=== PATIENT | male | born 1980 | race Caucasian/White ===

== ENCOUNTER 2017-12-22 20:13 | Inpatient (IN) | payer OTHER ==
[2017-12-22] MEDS ORDERED: SODIUM CHLORIDE 0.9% 1,000 ML IV STA ×2 (20:37)
[2017-12-22 20:50] LABS: Basophils % (A) 0 %; Eosinophils # (A) 0.2 k/uL (0-0.7); Eosinophils % (A) 3 %; HGB 14.4 gm/dL (13.0-17.5); Lymphocytes # (A) 1.9 k/uL (1.0-4.8); Lymphocytes % (A) 38 %; MCH 29.8 pg (25.0-35.0); MCHC 35.2 g/dL (31.0-37.0); MCV 84.5 fL (80.0-100.0); Mean Platelet Volume 6.6; Monocytes # (A) 0.5 k/uL (0-1.0); Monocytes % (A) 9 %; Neutrophils # (A) 2.4 k/uL (1.3-7.7); Neutrophils % (A) 46 %; Platelet Count 203 k/uL (150-450); RBC 4.85 m/uL (4.30-5.90); RDW 12.6 % (11.5-15.5); WBC 5.1 k/uL (3.8-10.6)
[2017-12-22 21:01] LABS: ALT 53 U/L (21-72); AST 36 U/L (17-59); Albumin 3.9 g/dL (3.5-5.0); Alkaline Phosphatase 49 U/L (38-126); Anion Gap 10 mmol/L; Blood Urea Nitrogen 14 mg/dL (9-20); Calcium 9.1 mg/dL (8.4-10.2); Carbon Dioxide 27 mmol/L (22-30); Chloride 105 mmol/L (98-107); Glucose 106 mg/dL (74-99); Potassium 3.9 mmol/L (3.5-5.1); Sodium 142 mmol/L (137-145); Total Bilirubin 0.4 mg/dL (0.2-1.3)
[2017-12-22] MEDS ORDERED: HEPARIN SODIUM,PORCINE 5,000 UNIT/ML 1 ML VIAL IV STA (21:18)
--- NOTE | 2017-12-22 21:32 | XR ---
EXAMINATION TYPE: XR chest 1V DATE OF EXAM: 12/22/2017 COMPARISON: NONE HISTORY: Myocardial infarction TECHNIQUE: Single frontal view of the chest is obtained. FINDINGS: There is no focal air space opacity, pleural effusion, or pneumothorax seen. The cardiac silhouette size is within normal limits. The osseous structures are intact. There are overlying car diac leads. IMPRESSION: No acute process.
[2017-12-22] MEDS ORDERED: IV FLUID CONTINUATION 1,000 ML IV ONE (21:45)
[2017-12-22] MEDS ORDERED: MORPHINE SULFATE 10 MG/ML SYRINGE IV PRN (21:46)
[2017-12-22] MEDS ORDERED: NALOXONE 0.4 MG/ML 1 ML VIAL IV PRN (21:46)
[2017-12-22] MEDS ORDERED: ACETAMINOPHEN TAB 325 MG TAB PO PRN (21:46)
--- NOTE | 2017-12-22 21:46 | ED ---
Dizziness HPI - General Chief Complaint: Dizziness Stated Complaint: Abn EKG Time Seen by Provider: 12/22/17 20:20 Source: EMS Mode of arrival: EMS Limitations: no limitations - History of Present Illness Initial Comments: 7 years old male was sent to [facility] emergency department from urgent care they noticed that there was a EKG changes he presented there for dizziness dizziness is gone on for about 3 days now he stopped taken his antidepressants which was mostly Celexa and he was also on a Klonopin IV stopped taken #2 weeks ago he still feels dizzy he denies any chest pain no shortness of breath he denies any street drugs he denies any abdominal pain no frequency urgency dysuria he denies any family history dad and a young age mom's history of for high blood pressure and siblings are healthy. - Related Data Home Medications Medication Instructions Recorded Confirmed No Known Home Medications [No 12/22/17 12/22/17 Known Home Medications] Allergies Allergy/AdvReac Type Severity Reaction Status Date / Time No Known Allergies Allergy Verified 12/22/17 20:27 Review of Systems ROS Statement: Those systems with pertinent positive or pertinent negative responses have been documented in the HPI. ROS Other: All systems not noted in ROS Statement are negative. Past Medical History Past Medical History: No Reported History History of Any Multi-Drug Resistant Organisms: None Reported Past Surgical History: No Surgical Hx Reported Past Psychological History: Anxiety, Depression Smoking Status: Former smoker Past Alcohol Use History: Occasional Past Drug Use History: Marijuana General Exam - General Exam Comments Initial Comments: General: The patient is awake and alert, in no distress, and does not appear acutely ill. Skin: Skin is warm and dry and no rashes or lesions are noted. Eye: Pupils are equal, round and reactive to light, extra-ocular movements are intact; there is normal conjunctiva bilaterally. Ears, nose, mouth and throat: There are moist mucous membranes and no oral lesions. Neck: The neck is supple, there is no tenderness or JVD. Cardiovascular: There is a regular rate and rhythm. No murmur, rub or gallop is appreciated. Respiratory: To auscultation bilateral, no wheezing no rhonchi no distress respiratory crowe noticed Gastrointestinal: Soft, non-distended, non-tender abdomen without masses or organomegaly noted. There is no rebound or guarding present. Bowel sounds are unremarkable. Back: There is no tenderness to palpation in the midline. There is no obvious deformity. Musculoskeletal: Normal ROM, no tenderness, There is no pedal edema. There is no calf tenderness or swelling. No cords were appreciated. Neurological: CN II-XII intact, Cranial nerves III through XII are intact. There are no obvious motor or sensory deficits. Coordination appears grossly intact. Speech is normal. Psychiatric: Cooperative, appropriate mood & affect, normal judgment. Limitations: no limitations Course Vital Signs 12/22/17 12/22/17 12/22/17 20:15 20:49 21:11 Temperature 97.1 F L Pulse Rate 70 64 Pulse Rate [ 67 Right Sitting Pulse Oximetery ] Pulse Rate [ 70 Right Standing Pulse Oximetery ] Pulse Rate [ 58 L Right Supine Pulse Oximetery ] Respiratory 16 18 18 Rate Blood Pressure 125/68 115/72 Blood Pressure 106/68 [Right Arm Sitting] Blood Pressure 110/72 [Right Arm Standing] Blood Pressure 100/57 [Right Arm Supine] O2 Sat by Pulse 96 100 Oximetry 12/22/17 12/22/17 21:17 21:30 Temperature Pulse Rate 59 L 55 L Pulse Rate [ Right Sitting Pulse Oximetery ] Pulse Rate [ Right Standing Pulse Oximetery ] Pulse Rate [ Right Supine Pulse Oximetery ] Respiratory 18 18 Rate Blood Pressure 120/72 121/73 Blood Pressure [Right Arm Sitting] Blood Pressure [Right Arm Standing] Blood Pressure [Right Arm Supine] O2 Sat by Pulse 100 100 Oximetry EKG was reviewed, was faxed to Dr. Bear Sifuentes is concerned about STEMI he agreed to activate the [employer] were given patient 4000 units of heparin EKG Findings - EKG Comments: EKG Findings:: I'm EKG is normal sinus rhythm Rosa is normal his ST elevation and now to 3 and slight one in aVF, no reciprocal changes noticed no ST depression noticed in the chest leads Medical Decision Making - Lab Data Result diagrams: 12/22/17 20:20 12/22/17 20:20 Lab Results 12/22/17 12/22/17 12/22/17 Range/Units 20:20 20:20 20:20 WBC 5.1 (3.8-10.6) k/uL RBC 4.85 (4.30-5.90) m/uL Hgb 14.4 (13.0-17.5) gm/dL Hct 41.0 (39.0-53.0) % MCV 84.5 (80.0-100.0) fL MCH 29.8 (25.0-35.0) pg MCHC 35.2 (31.0-37.0) g/dL RDW 12.6 (11.5-15.5) % Plt Count 203 (150-450) k/uL Neutrophils % 46 % Lymphocytes % 38 % Monocytes % 9 % Eosinophils % 3 % Basophils % 0 % Neutrophils # 2.4 (1.3-7.7) k/uL Lymphocytes # 1.9 (1.0-4.8) k/uL Monocytes # 0.5 (0-1.0) k/uL Eosinophils # 0.2 (0-0.7) k/uL Basophils # 0.0 (0-0.2) k/uL Sodium 142 (137-145) mmol/L Potassium 3.9 (3.5-5.1) mmol/L Chloride 105 (98-107) mmol/L Carbon Dioxide 27 (22-30) mmol/L Anion Gap 10 mmol/L BUN 14 (9-20) mg/dL Creatinine 0.80 (0.66-1.25) mg/dL Est GFR (CKD-EPI)AfAm >90 (>60 ml/min/1.73 sqM) Est GFR (CKD-EPI)NonAf >90 (>60 ml/min/1.73 sqM) Glucose 106 H (74-99) mg/dL Plasma Lactic Acid Geoff (0.7-2.0) mmol/L Calcium 9.1 (8.4-10.2) mg/dL Total Bilirubin 0.4 (0.2-1.3) mg/dL AST 36 (17-59) U/L ALT 53 (21-72) U/L Alkaline Phosphatase 49 (38-126) U/L Troponin I <0.012 (0.000-0.034) ng/mL Total Protein 7.0 (6.3-8.2) g/dL Albumin 3.9 (3.5-5.0) g/dL 12/22/17 Range/Units 20:45 WBC (3.8-10.6) k/uL RBC (4.30-5.90) m/uL Hgb (13.0-17.5) gm/dL Hct (39.0-53.0) % MCV (80.0-100.0) fL MCH (25.0-35.0) pg MCHC (31.0-37.0) g/dL RDW (11.5-15.5) % Plt Count (150-450) k/uL Neutrophils % % Lymphocytes % % Monocytes % % Eosinophils % % Basophils % % Neutrophils # (1.3-7.7) k/uL Lymphocytes # (1.0-4.8) k/uL Monocytes # (0-1.0) k/uL Eosinophils # (0-0.7) k/uL Basophils # (0-0.2) k/uL Sodium (137-145) mmol/L Potassium (3.5-5.1) mmol/L Chloride (98-107) mmol/L Carbon Dioxide (22-30) mmol/L Anion Gap mmol/L BUN (9-20) mg/dL Creatinine (0.66-1.25) mg/dL Est GFR (CKD-EPI)AfAm (>60 ml/min/1.73 sqM) Est GFR (CKD-EPI)NonAf (>60 ml/min/1.73 sqM) Glucose (74-99) mg/dL Plasma Lactic Acid Geoff 0.9 (0.7-2.0) mmol/L Calcium (8.4-10.2) mg/dL Total Bilirubin (0.2-1.3) mg/dL AST (17-59) U/L ALT (21-72) U/L Alkaline Phosphatase (38-126) U/L Troponin I (0.000-0.034) ng/mL Total Protein (6.3-8.2) g/dL Albumin (3.5-5.0) g/dL Disposition Clinical Impression: STEMI (ST elevation myocardial infarction) Disposition: ADMITTED IP TO THIS HOSP Condition: Good Referrals: Nonstaff,Physician [Primary Care Provider] - 1-2 days
[2017-12-22] MEDS ORDERED: VERAPAMIL 2.5 MG/ML 2 ML AMP ONE (21:50)
[2017-12-22] MEDS ORDERED: MIDAZOLAM 2 MG/2 ML VIAL ONE (21:51)
[2017-12-22] MEDS ORDERED: MORPHINE SULFATE 4 MG/ML SYRINGE IV PRN (21:54)
[2017-12-22] MEDS ORDERED: MIDAZOLAM 2 MG/2 ML VIAL IV ONE (21:56)
[2017-12-22] MEDS ORDERED: LIDOCAINE 2% INJ 20 MG/ML SQ ONE ×2 (21:58→22:00)
[2017-12-22] MEDS ORDERED: HEPARIN SODIUM 1,000 UN/ML (10ML VL) ONE (22:01)
[2017-12-22] MEDS: VERAPAMIL SYRINGE (5 MG/10 ML) INTRAARTER ONE ×2 (22:03→22:11)
[2017-12-22] MEDS ORDERED: IOHEXOL 350 MG/ML 125ML BOTTLE INJ ONE (22:11)
[2017-12-22] MEDS ORDERED: RX INFO: IV CONTRAST WAS GIVEN 1 EACH MISC MISCELLANE PRN (22:21)
[2017-12-22] MEDS ORDERED: SODIUM CHLORIDE 0.9% 1,000 ML IV SCH (22:30)
--- NOTE | 2017-12-22 22:30 | P.CRDCN ---
History of Present Illness Consult date: 12/22/17 Chief complaint: Dizziness or lightheadedness History of present illness: This is a 37-year-old gentleman who was visiting from [place] presented to the emergency room complaining of dizziness and lightheadedness. The symptoms started about 3 days ago. He did not have any symptoms of chest pain or discomfort. No feeling of heart racing or fluttering and no syncope. The EKG when he presented to the hospital showed about [address] segment elevation in the inferior leads without any ST changes in the chest leads. The EKG was quite concerning for acute inferior STEMI. Because of that the patient advised to undergo an emergent heart catheterization. It did show normal coronaries. Also I did perform left ventriculography and that revealed normal LV function. The patient does not have any comorbidities like diabetes or hypertension or dyslipidemia. He does smoke marijuana. He does have a family history of hypertension with his mother. He did tolerate the procedure very well. Past Medical History Past Medical History: No Reported History History of Any Multi-Drug Resistant Organisms: None Reported Past Surgical History: No Surgical Hx Reported Past Psychological History: Anxiety, Depression Smoking Status: Former smoker Past Alcohol Use History: Occasional Past Drug Use History: Marijuana Medications and Allergies Home Medications Medication Instructions Recorded Confirmed Type No Known Home Medications [No 12/22/17 12/22/17 History Known Home Medications] Allergies Allergy/AdvReac Type Severity Reaction Status Date / Time No Known Allergies Allergy Verified 12/22/17 20:27 Physical Exam Vitals: Vital Signs Temp Pulse Pulse Pulse Pulse Resp BP 12/22/17 21:30 55 L 18 121/73 12/22/17 21:17 59 L 18 120/72 12/22/17 21:11 64 18 115/72 12/22/17 20:49 67 70 58 L 18 12/22/17 20:15 97.1 F L 70 16 125/68 BP BP BP Pulse Ox 12/22/17 21:30 100 12/22/17 21:17 100 12/22/17 21:11 100 12/22/17 20:49 106/68 110/72 100/57 12/22/17 20:15 96 Intake and Output 12/22/17 12/22/17 12/22/17 06:59 14:59 22:59 Intake Total 50 Balance 50 Intake: IV 50 Other: Weight 65.771 kg Patient Weight 12/23/17 06:59 Weight 65.771 kg - Constitutional General appearance: no acute distress - Respiratory Respiratory: bilateral: CTA - Cardiovascular Rhythm: regular Heart sounds: normal: S1, S2 Abnormal Heart Sounds: systolic murmur Results 12/22/17 20:20 12/22/17 20:20 Cardiac Enzymes 12/22/17 12/22/17 Range/Units 20:20 20:20 AST 36 (17-59) U/L Troponin I <0.012 (0.000-0.034) ng/mL CBC 12/22/17 Range/Units 20:20 WBC 5.1 (3.8-10.6) k/uL RBC 4.85 (4.30-5.90) m/uL Hgb 14.4 (13.0-17.5) gm/dL Hct 41.0 (39.0-53.0) % Plt Count 203 (150-450) k/uL Comprehensive Metabolic Panel 12/22/17 Range/Units 20:20 Sodium 142 (137-145) mmol/L Potassium 3.9 (3.5-5.1) mmol/L Chloride 105 (98-107) mmol/L Carbon Dioxide 27 (22-30) mmol/L BUN 14 (9-20) mg/dL Creatinine 0.80 (0.66-1.25) mg/dL Glucose 106 H (74-99) mg/dL Calcium 9.1 (8.4-10.2) mg/dL AST 36 (17-59) U/L ALT 53 (21-72) U/L Alkaline Phosphatase 49 (38-126) U/L Total Protein 7.0 (6.3-8.2) g/dL Albumin 3.9 (3.5-5.0) g/dL Current Medications Generic Name Dose Route Start Last Admin Trade Name Freq PRN Reason Stop Dose Admin Acetaminophen 650 mg 12/22/17 21:46 Tylenol Tab PO Q4HR PRN Fever and/or Mild Pain Sodium Chloride 1,000 mls @ 75 mls/hr 12/22/17 20:37 12/22/17 20:47 Saline 0.9% IV 12/23/17 09:56 75 mls/hr .[id number] STA Administration Sodium Chloride 1,000 mls @ 100 mls/hr 12/22/17 22:30 Saline 0.9% IV 12/23/17 03:31 .Q10H [facility] Miscellaneous Information 1 each 12/22/17 22:21 Rx Info: Iv Contrast Was Given MISCELLANE 12/24/17 22:21 DAILY PRN Per Protocol Morphine Sulfate 5 mg 12/22/17 21:54 Morphine Sulfate (Inj) IV Q2HR PRN Pain Scale 10 Naloxone HCl 0.2 mg 12/22/17 21:46 Narcan IV Q2M PRN Opioid Reversal Intake and Output 12/22/17 12/22/17 12/22/17 06:59 14:59 22:59 Intake Total 50 Balance 50 Intake: IV 50 Other: Weight 65.771 kg Patient Weight 12/23/17 06:59 Weight 65.771 kg 12/22/17 20:20 12/22/17 20:20 Assessment and Plan Assessment: Assessment #1 abnormal EKG concerning for inferior STEMI #2 dizziness and lightheadedness. Plan #1 the patient underwent an emergent heart catheterization and that revealed normal coronaries #2 I will perform an echocardiogram was Doppler #3 follow-up with the patient. Thank you for allowing us participate in his care
--- NOTE | 2017-12-22 22:34 | P.PCN ---
Date of Procedure: 12/22/17 Operative Findings: CARDIAC CATHETERIZATION PERFORMING PHYSICIAN: Nikko Sifuentes MD, [facility] PREPROCEDURE DIAGNOSES: #1 abnormal EKG concerning for inferior STEMI #2 dizziness and lightheadedness POSTPROCEDURE DIAGNOSES: #1 normal coronary angiogram #2 normal left ventricular systolic function PROCEDURE PERFORMED: 1. Selective right and left coronary angiogram 2. Left heart catheterization 3. Left ventriculography APPROACH: Right radial artery PROCEDURE DESCRIPTION: After obtaining an informed consent and explaining the procedure benefits, risks , and complications, the patient was brought to cardiac floating labor gang supervisor. Local anesthesia was performed using lidocaine subcutaneously. The right radial artery was cannulated using Seldinger technique, the guidewire passed easily, following that we advanced a 6-Amharic sheath dilator assembly, the wire and dilator were removed and sheath was flushed. Following that, 2 mg of verapamil along with 3000 unit heparin were given. Selective right and left coronary angiogram using a 6-Amharic JR4 and JL 3.5 catheters. Following that we did left heart catheterization followed by left ventriculography using 6-Amharic pigtail catheter. The procedure was completed there was no complication. SELECTIVE CORONARY ANGIOGRAM: The right coronary artery: Is a large caliber vessel and its a dominant vessel. Its angiographically normal. Bifurcates distally into PDA and PLV branches both are angiographically normal. Left main: Is angiographically normal. Bifurcates into the left circumflex and left anterior descending artery. The left circumflex: Is a large caliber vessel and nondominant vessel. The proximal left circumflex gives rises into a large OM branch which bifurcates into 2 subbranches. The first OM is angiographically normal and the 2 subbranches are angiographically normal as well. The left anterior descending artery: Is a large caliber vessel and appears to be reaching the apex. The LAD is angiographically normal. HEMODYNAMICS: The left ventricular end-diastolic pressure was 16 mmHg and no gradient was identified across aortic valve VENTRICULOGRAPHY: Was performed in the HANSON projection and using a power injection. The left ventricle systolic function is normal with EF about 55%. CONCLUSION: #1 normal coronary angiogram #2 normal left ventricular end-diastolic pressure #3 normal left ventricular systolic function POSTPROCEDURE MANAGEMENT: Medical treatment only.
[2017-12-23 06:13] VITALS: RESP 18
[2017-12-23 09:40] VITALS: PULSE 88
[2017-12-23 12:21] VITALS: BP 129/67; TEMP 98.2
[2017-12-23 15:28] LABS: Urine Alcohol Negative (Negative); Urine Barbiturate Negative (Negative); Urine Cocaine Negative (Negative); Urine Methadone Negative (Negative); Urine Opiates Negative (Negative); Urine Phencyclidine Negative (Negative)
[2017-12-23 16:14] LABS: Hemoglobin A1C 5.2 % (4.0-6.0)
--- NOTE | 2017-12-23 22:38 | P.HPIM ---
History of Present Illness H&P Date: 12/23/17 Chief Complaint: Dizziness Patient is a 37 old male without significant past medical history initially presented to urgent care facility with complaints of dizziness and lightheadedness. Symptoms have been present for the past 3 days. Denied any chest pain or shortness of breath. No recent illnesses. No nausea vomiting diarrhea. EKG at the urgent care facility showed ST elevation and was immediately referred to the emergency room. Patient does have abnormal EKG with possible inferior ST elevated OH. Patient was immediately taken to cardiac catheterization which showed normal coronaries and normal left ventricle function. Currently patient denied any complaints of dizziness. Review of Systems Constitutional: Patient denies any fever or chills . No generalized weakness or weight loss. Abdomen: Patient denied nausea vomiting and diarrhea and abdominal pain. Cardiovascular: Patient denies any chest pain or short of breath no palpitations. Respiratory: patient denied any cough is from production. No shortness of breath Neurologic: Patient denied any numbness or tingling headache. Musculoskeletal: Patient denies any complaints of joint swelling or deformity. Dizziness and lightheadedness Skin: Negative Psychiatric: Negative Endocrine: No heat or cold intolerance. No recent weight gain. Genitourinary: No dysuria or hematuria. All other 14 point ROS negative except the above Past Medical History Past Medical History: No Reported History History of Any Multi-Drug Resistant Organisms: None Reported Past Surgical History: No Surgical Hx Reported Additional Past Surgical History / Comment(s): HEART CATH 12-22-17 CLEAR CATH Past Psychological History: Anxiety, Depression Smoking Status: Former smoker Past Alcohol Use History: Occasional Past Drug Use History: Marijuana - Past Family History Mother Family Medical History: Hypertension Medications and Allergies Home Medications Medication Instructions Recorded Confirmed Type No Known Home Medications [No 12/22/17 12/22/17 History Known Home Medications] Allergies Allergy/AdvReac Type Severity Reaction Status Date / Time No Known Allergies Allergy Verified 12/22/17 20:27 Physical Exam Vitals: Vital Signs Temp Pulse Pulse Pulse Pulse Pulse Resp 12/23/17 09:36 98.4 F 77 87 79 88 16 12/23/17 04:00 97.8 F 77 17 12/23/17 02:06 98.0 F 77 19 12/23/17 01:06 97.1 F L 72 18 12/23/17 00:06 97.7 F 60 17 12/23/17 00:00 74 18 03/08/18 23:36 97.2 F L 78 18 12/22/17 23:06 97.3 F L 70 18 12/22/17 22:51 97.7 F 68 17 12/22/17 22:36 97.0 F L 74 18 12/22/17 22:21 97.2 F L 73 17 12/22/17 21:56 97.0 F L 77 18 12/22/17 21:30 55 L 18 12/22/17 21:17 59 L 18 12/22/17 21:11 64 18 12/22/17 20:49 67 70 58 L 18 12/22/17 20:15 97.1 F L 70 16 BP BP BP BP Pulse Ox 12/23/17 09:36 114/68 145/70 107/63 98 12/23/17 04:00 114/75 98 12/23/17 02:06 125/62 98 12/23/17 01:06 111/64 98 12/23/17 00:06 117/62 96 12/23/17 00:00 12/22/17 23:36 115/66 97 12/22/17 23:06 113/62 98 12/22/17 22:51 116/70 97 12/22/17 22:36 111/64 98 12/22/17 22:21 122/68 96 12/22/17 21:56 114/62 97 12/22/17 21:30 121/73 100 12/22/17 21:17 120/72 100 12/22/17 21:11 115/72 100 12/22/17 20:49 106/68 110/72 100/57 12/22/17 20:15 125/68 96 Intake and Output 12/22/17 12/23/17 12/23/17 22:59 06:59 14:59 Intake Total 50 200 240 Output Total 500 Balance 50 -300 240 Intake: IV 50 Intake, IV Titration 200 Amount Sodium Chloride 0.9% 1, 200 000 ml @ 100 mls/hr IV . Q10H [facility] Rx#:[id number] Oral 240 Output: Urine 500 Other: Voiding Method Urinal Urinal Weight 65.771 kg 70.5 kg PHYSICAL EXAMINATION: Patient is lying in the bed comfortably, no acute distress, awake alert and oriented.. HEENT: Normocephalic. Neck is supple. Pupils reactive. Nostrils clear. Oral cavity is moist. Ears reveal no drainage. Neck reveals no JVD, carotid bruits, or thyromegaly. CHEST EXAMINATION: Trachea is central. Symmetrical expansion. Lung urena clear to auscultation and percussion. CARDIAC: Normal S1, S2 with no gallops. No murmurs ABDOMEN: Soft. Bowel sounds normal. No organomegaly. No abdominal bruits. Extremities: reveal no edema. No clubbing or cyanosis Neurologically awake, alert, oriented x3 with well-coordinated movements. No focal deficits noted Skin: No rash or skin lesions. Psychiatric: Coperative. Nonsuicidal Musculoskeletal: No joint swelling or deformity. Normal range of motion. Results CBC & Chem 7: 12/22/17 20:20 12/22/17 20:20 Labs: Abnormal Lab Results - Last 24 Hours (Table) 12/22/17 Range/Units 20:20 Glucose 106 H (74-99) mg/dL Thrombosis Risk Factor Assmnt - Choose All That Apply Any of the Below Risk Factors Present?: No Assessment and Plan Assessment: Dizziness and lightheadedness likely due to orthostatic hypotension. Improved now Abnormal EKG concerning for acute inferior ST elevated [place]. Status post cardiac catheterization showed normal coronaries UDS positive for benzodiazepines\\ Plan: Patient was given fluid bolus in the ER. With improvement in symptoms. Continue the telemetry monitoring and possible discharge home with cardiology clearance Time with Patient: Greater than 30
--- NOTE | 2017-12-23 22:40 | P.DS ---
Providers Date of admission: 12/22/17 21:46 Expected date of discharge: 12/23/17 Attending physician: Felisha Steiner Consults: 12/22/17 21:46 Consult Physician Stat Consulting Provider: Hattie Pretty Consult Reason/Comments: Status post STEMI Do you want consulting provider notified?: Yes Consult Physician Stat Consulting Provider: Nikko Sifuentes Consult Reason/Comments: STEMI Do you want consulting provider notified?: Yes Primary care physician: Physician Nonstaff Hospital Course: Discharge diagnosis Dizziness and lightheadedness likely due to orthostatic hypotension. Improved now Abnormal EKG concerning for acute inferior ST elevated OH. Status post cardiac catheterization showed normal coronaries UDS positive for benzodiazepines\\ Hospital course Patient is a 37 old male without significant past medical history initially presented to urgent care facility with complaints of dizziness and lightheadedness. Symptoms have been present for the past 3 days. Denied any chest pain or shortness of breath. No recent illnesses. No nausea vomiting diarrhea. EKG at the urgent care facility showed ST elevation and was immediately referred to the emergency room. Patient does have abnormal EKG with possible inferior ST elevated OH. Patient was immediately taken to cardiac catheterization which showed normal coronaries and normal left ventricle function. Currently patient denied any complaints of dizziness. Orthostatic vitals were positive. Patient was given fluid bolus in the ER. With improvement in symptoms. Continued the telemetry monitoring and no abnormality was noted. Otherwise patient is symptom-free. Stable to be discharged home. Discharge physical examination was done and vitals reviewed. Patient Condition at Discharge: Good Plan - Discharge Summary New Discharge Prescriptions: No Action No Known Home Medications [No Known Home Medications] Discharge Medication List No Known Home Medications [No Known Home Medications] 12/22/17 [History] Follow up Appointment(s)/Referral(s): Nikko Sifuentes MD [STAFF PHYSICIAN] - (Spoke to bag valver. Office to call with appointment time.) Nonstaff,Physician [Primary Care Provider] - 1-2 days Patient Instructions/Handouts: *Surgery [facility] - After Heart Catheterization - Vacation Planner Instructions, Left Heart Catheterization (DC) Discharge Disposition: HOME SELF-CARE
== END 2017-12-23 17:55 | disposition home or self-care (01) | DRG 287 ==
LOC: EC 20:13 → 6ICU 21:46 → 6SEL 22:26
PROVIDERS: ADMIT Hospitalist; ATTEND Hospitalist
PROC: B2111ZZ Fluoroscopy of Multiple Coronary Arteries using Low Osmolar Contrast (ICD-10-PCS; 2017-12-22)
PROC: B2151ZZ Fluoroscopy of Left Heart using Low Osmolar Contrast (ICD-10-PCS; 2017-12-22)
PROC: 4A023N7 Measurement of Cardiac Sampling and Pressure, Left Heart, Percutaneous Approach (ICD-10-PCS; principal; 2017-12-22 21:30)
DX: I95.1 Orthostatic hypotension (principal); Z82.49 Family history of ischemic heart disease and other diseases of the circulatory system; Z87.891 Personal history of nicotine dependence; Z86.59 Personal history of other mental and behavioral disorders
CPT/HCPCS: 36415; 71045; 80053; 80306; 83036; 83605; 84484; 85025; 93005; 93458; 96361; 96374; 99285

== ENCOUNTER 2018-02-18 22:07 | Emergency (ER) | payer OTHER ==
[2018-02-18 22:21] VITALS: RESP 18
--- NOTE | 2018-02-19 01:46 | ED ---
Psych HPI - General Chief Complaint: Psychiatric Symptoms Stated Complaint: Mental Health Eval Time Seen by Provider: 02/18/18 22:45 Source: patient Mode of arrival: ambulatory - History of Present Illness Initial Comments: 37 year-old male patient presents to emergency department today brought in by his . Patient states that his didn't feel comfortable with him being at home, is not available for questioning. When asked if he is suicidal he states, "I do not want talk about that". Patient denies any history of suicide attempt. States he does have a history of depression. He states is not currently taking any medications. He denies any current physical symptoms. States that he wants to go home because he has to go to work on Tuesday. Denies any drug use, hallucinations, difficult is sleeping, or difficulty eating. Patient denies any recent rash, fever, chills, shortness breath, chest pain, abdominal pain, nausea, vomiting, diarrhea, constipation, back pain, numbness, tingling, dizziness, weakness, hematuria, dysuria, urinary urgency, urinary frequency, headache, visual changes, or any other complaints. - Related Data Home Medications Medication Instructions Recorded Confirmed No Known Home Medications [No 12/22/17 02/18/18 Known Home Medications] Allergies Allergy/AdvReac Type Severity Reaction Status Date / Time No Known Allergies Allergy Verified 02/18/18 22:21 Review of Systems ROS Statement: Those systems with pertinent positive or pertinent negative responses have been documented in the HPI. ROS Other: All systems not noted in ROS Statement are negative. Past Medical History Past Medical History: No Reported History History of Any Multi-Drug Resistant Organisms: None Reported Past Surgical History: No Surgical Hx Reported Additional Past Surgical History / Comment(s): HEART CATH 12-22-17 CLEAR CATH, Past Psychological History: Anxiety, Depression Smoking Status: Former smoker Past Alcohol Use History: Occasional Past Drug Use History: Marijuana - Past Family History Mother Family Medical History: Hypertension General Exam Limitations: no limitations General appearance: alert, in no apparent distress, other (Social well-developed , well-nourished adult male patient in no acute distress. Vital signs upon presentation are temperature 98.3F, pulse 87, respirations 18, blood pressure 120/72, pulse ox 97% on room air.) Eye exam: Present: normal appearance, PERRL, EOMI. Absent: scleral icterus, conjunctival injection, periorbital swelling ENT exam: Present: normal exam, normal oropharynx, mucous membranes moist Respiratory exam: Present: normal lung sounds bilaterally. Absent: respiratory distress, wheezes, rales, rhonchi, stridor Cardiovascular Exam: Present: regular rate, normal rhythm, normal heart sounds. Absent: systolic murmur, diastolic murmur, rubs, gallop, clicks Neurological exam: Present: alert, oriented X3, CN II-XII intact Psychiatric exam: Present: normal affect, normal mood Skin exam: Present: warm, dry, intact, normal color. Absent: rash Course Vital Signs 02/18/18 22:15 Temperature 98.3 F Pulse Rate 87 Respiratory 18 Rate Blood Pressure 120/72 O2 Sat by Pulse 97 Oximetry Medical Decision Making - Medical Decision Making 37 year-old male patient presented to the emergency department today to request of his . was not available to provide information. Patient denied suicidal ideation. Patient was evaluated by emergency psych services, they feel he does not meet inpatient criteria at this time. Emergency psych services did speak to his at home who does feel comfortable picking him up and taking him home. He is instructed to follow-up with outpatient mental health services. He is instructed to return here immediately for any new, worsening, or concerning symptoms. He verbalizes understanding and agrees with this plan. Disposition Clinical Impression: Depression, Suicidal ideation Disposition: HOME SELF-CARE Condition: Good Instructions: Suicide Prevention for Adults (ED) Additional Instructions: Follow-up outpatient for mental health services. Return here immediately for any new, worsening, or concerning symptoms. Is patient prescribed a controlled substance at d/c from ED?: No Referrals: None,Stated [Primary Care Provider] - 1-2 days Time of Disposition: 01:46
[2018-02-19 02:07] VITALS: BP 109/57; PULSE 62; TEMP 98.1
== END 2018-02-19 02:07 | disposition home or self-care (01) ==
LOC: EC 22:07
DX: F32.9 Major depressive disorder, single episode, unspecified (principal); R45.851 Suicidal ideations; Z87.891 Personal history of nicotine dependence
CPT/HCPCS: 82075; 99284

== ENCOUNTER 2019-01-31 21:55 | Emergency (ER) | payer OTHER ==
[2019-01-31] MEDS ORDERED: DIPH,PERTUS(ACELL)TETVAC-LF 0.5 ML VIAL IM ONE (22:10)
--- NOTE | 2019-01-31 22:10 | ED ---
Psych HPI - General Chief Complaint: Psychiatric Symptoms Stated Complaint: Petition Time Seen by Provider: 01/31/19 22:04 Source: patient, police, RN notes reviewed Mode of arrival: wheelchair Limitations: no limitations - History of Present Illness Initial Comments: This is a 38-year-old male presents emergency Department with [facility] police department for psychiatric evaluation. Patient states that he is depressed, suicidal. He is scheduled see his therapist. Patient states that he attempted cut his right wrist is unsure when his last tetanus was. Patient denies any drug or alcohol abuse denies any other physical complaints. Patient does not take any prescription medications. Patient states that he is messed up too much and this is why he is depressed. - Related Data Home Medications Medication Instructions Recorded Confirmed No Known Home Medications 12/22/17 01/31/19 Allergies Allergy/AdvReac Type Severity Reaction Status Date / Time No Known Allergies Allergy Verified 01/31/19 22:15 Review of Systems ROS Statement: Those systems with pertinent positive or pertinent negative responses have been documented in the HPI. ROS Other: All systems not noted in ROS Statement are negative. Past Medical History Past Medical History: No Reported History History of Any Multi-Drug Resistant Organisms: None Reported Past Surgical History: No Surgical Hx Reported Additional Past Surgical History / Comment(s): HEART CATH 12-22-17 CLEAR CATH, Past Psychological History: Anxiety, Depression Smoking Status: Former smoker Past Alcohol Use History: Occasional Past Drug Use History: Marijuana - Past Family History Mother Family Medical History: Hypertension General Exam Limitations: no limitations General appearance: alert, in no apparent distress Head exam: Present: atraumatic, normocephalic, normal inspection Eye exam: Present: normal appearance, PERRL, EOMI. Absent: scleral icterus, conjunctival injection, periorbital swelling ENT exam: Present: normal exam, normal oropharynx, mucous membranes moist Neck exam: Present: normal inspection, full ROM. Absent: tenderness, meningismus, lymphadenopathy Respiratory exam: Present: normal lung sounds bilaterally. Absent: respiratory distress, wheezes, rales, rhonchi, stridor Cardiovascular Exam: Present: regular rate, normal rhythm, normal heart sounds. Absent: systolic murmur, diastolic murmur, rubs, gallop, clicks Extremities exam: Present: other (Right wrist there is superficial abrasion noted) Neurological exam: Present: alert, oriented X3, CN II-XII intact Psychiatric exam: Present: flat affect Skin exam: Present: warm, dry, intact, normal color. Absent: rash Course Vital Signs 01/31/19 21:58 Temperature 98.2 F Pulse Rate 65 Respiratory 18 Rate Blood Pressure 145/89 O2 Sat by Pulse 100 Oximetry Medical Decision Making - Medical Decision Making 38-year-old male presented for psychiatric evaluation. Patient was evaluated by EPS case discussed with psychiatrist who recommends inpatient treatment. Patient will be transferred to a facility. - Lab Data Result diagrams: 02/01/19 00:05 Lab Results 01/31/19 01/31/19 02/01/19 Range/Units 23:35 23:35 00:05 WBC 7.1 (3.8-10.6) k/uL RBC 4.89 (4.30-5.90) m/uL Hgb 14.0 (13.0-17.5) gm/dL Hct 41.7 (39.0-53.0) % MCV 85.3 (80.0-100.0) fL MCH 28.5 (25.0-35.0) pg MCHC 33.5 (31.0-37.0) g/dL RDW 12.8 (11.5-15.5) % Plt Count 208 (150-450) k/uL Neutrophils % 71 % Lymphocytes % 17 % Monocytes % 8 % Eosinophils % 2 % Basophils % 0 % Neutrophils # 5.1 (1.3-7.7) k/uL Lymphocytes # 1.2 (1.0-4.8) k/uL Monocytes # 0.6 (0-1.0) k/uL Eosinophils # 0.1 (0-0.7) k/uL Basophils # 0.0 (0-0.2) k/uL Urine Color Yellow Urine Appearance Cloudy (Clear) Urine pH 6.5 (5.0-8.0) Ur Specific Igo 1.013 (1.001-1.035) Urine Protein Negative (Negative) Urine Glucose (UA) Negative (Negative) Urine Ketones Negative (Negative) Urine Blood Negative (Negative) Urine Nitrite Negative (Negative) Urine Bilirubin Negative (Negative) Urine Urobilinogen <2.0 (<2.0) mg/dL Ur Leukocyte Esterase Negative (Negative) Urine RBC <1 (0-5) /hpf Urine WBC <1 (0-5) /hpf Amorphous Sediment Rare H (None) /hpf Urine Mucus Rare H (None) /hpf Urine Opiates Screen Not Detected (NotDetected) Ur Oxycodone Screen Not Detected (NotDetected) Urine Methadone Screen Not Detected (NotDetected) Ur Propoxyphene Screen Not Detected (NotDetected) Ur Barbiturates Screen Not Detected (NotDetected) U Tricyclic Antidepress Not Detected (NotDetected) Ur Phencyclidine Scrn Not Detected (NotDetected) Ur Amphetamines Screen Not Detected (NotDetected) U Methamphetamines Scrn Not Detected (NotDetected) U Benzodiazepines Scrn Not Detected (NotDetected) Urine Cocaine Screen Not Detected (NotDetected) U Marijuana (THC) Screen Not Detected (NotDetected) Disposition Clinical Impression: Depression, Suicidal ideation Disposition: TRANSFER TO PSYCH HOSP/UNIT Condition: Stable Referrals: None,Stated [REFERRING] - 1-2 days Time of Disposition: 00:15
[2019-02-01 00:05] LABS: Amphetamine Screen,Urine Not Detected (NotDetected); Barbiturate Screen,Urine Not Detected (NotDetected); Benzodiazepines Screen,Urine Not Detected (NotDetected); Cocaine Screen,Urine Not Detected (NotDetected); Methadone Screen, Urine Not Detected (NotDetected); Opiate Screen,Urine Not Detected (NotDetected); Oxycodone Screen, Urine Not Detected (NotDetected); Phencyclidine Screen,Urine Not Detected (NotDetected); Tricyclic Antidepressant,Urine Not Detected (NotDetected); Urn Cannabinoid Scrn Not Detected (NotDetected)
[2019-02-01 00:24] LABS: Amorphous Sediment,Urine Rare /hpf; Appearance,Urine Cloudy (Clear); Bilirubin,Urine Negative (Negative); Blood,Urine Negative (Negative); Color,Urine Yellow; Glucose,Urine (UA) Negative (Negative); Ketones,Urine Negative (Negative); Leukocyte Esterase,Urine Negative (Negative); Mucus,Urine Rare /hpf; Nitrite,Urine Negative (Negative); PH, Urine 6.5 (5.0-8.0); Protein,Urine Negative (Negative); RBC,Urine <1 /hpf (0-5); Specific Gravity,Urine 1.013 (1.001-1.035); Urobilinogen,Urine <2.0 mg/dL (<2.0); WBC,Urine <1 /hpf (0-5)
[2019-02-01 00:46] LABS: Basophils % (A) 0 %; Eosinophils # (A) 0.1 k/uL (0-0.7); Eosinophils % (A) 2 %; HCT 41.7 % (39.0-53.0); Lymphocytes # (A) 1.2 k/uL (1.0-4.8); Lymphocytes % (A) 17 %; MCH 28.5 pg (25.0-35.0); MCHC 33.5 g/dL (31.0-37.0); MCV 85.3 fL (80.0-100.0); Mean Platelet Volume 6.7; Monocytes # (A) 0.6 k/uL (0-1.0); Monocytes % (A) 8 %; Neutrophils # (A) 5.1 k/uL (1.3-7.7); Neutrophils % (A) 71 %; Platelet Count 208 k/uL (150-450); RBC 4.89 m/uL (4.30-5.90); RDW 12.8 % (11.5-15.5); WBC 7.1 k/uL (3.8-10.6)
[2019-02-01 01:33] LABS: ALT 28 U/L (21-72); AST 36 U/L (17-59); Albumin 4.3 g/dL (3.5-5.0); Alkaline Phosphatase 55 U/L (38-126); Anion Gap 9 mmol/L; Blood Urea Nitrogen 17 mg/dL (9-20); Calcium 9.3 mg/dL (8.4-10.2); Carbon Dioxide 25 mmol/L (22-30); Chloride 105 mmol/L (98-107); Glucose 92 mg/dL (74-99); Potassium 3.7 mmol/L (3.5-5.1); Sodium 139 mmol/L (137-145); Total Bilirubin 0.6 mg/dL (0.2-1.3); Total Protein 7.4 g/dL (6.3-8.2)
[2019-02-01 13:31] VITALS: BP 125/80; PULSE 90; RESP 18; TEMP 97.1
== END 2019-02-01 14:23 ==
LOC: EC 21:55
DX: S60.811A Abrasion of right wrist, initial encounter (principal); F32.9 Major depressive disorder, single episode, unspecified; R45.851 Suicidal ideations; Z87.891 Personal history of nicotine dependence; Z23 Encounter for immunization; X78.9XXA Intentional self-harm by unspecified sharp object, initial encounter
CPT/HCPCS: 36415; 80053; 80306; 81001; 82075; 85025; 90471; 90715; 99285